=== PATIENT | male | born 1955 | race Caucasian/White ===

== ENCOUNTER 2024-08-05 10:28 | Day surgery (SDC) | payer MEDICARE, OTHER ==
[2024-08-05] VITALS (14 sets, daily range): BP systolic 125–160; BP diastolic 67–96; PULSE 75–88; RESP 14–16; TEMP 97.8; O2SAT 92–99
[~2024-08-05] VITALS: Ht 180.3 cm; Wt 152.0 kg
[~2024-08-05 10:28] MED LIST: ASPI81TA52 PO; HYDR-3972 PO
[2024-08-05] MEDS ORDERED: normal saline 1000ml 1,000 ML IV SCH (11:05)
[2024-08-05] MEDS ORDERED: FURO40TA4 PO (11:22)
[2024-08-05] MEDS ORDERED: AMLO5TAB16 PO (11:22)
[2024-08-05] MEDS ORDERED: LOSA100T58 PO (11:22)
[2024-08-05] MEDS ORDERED: ASPI-1265 PO (11:22)
[2024-08-05] MEDS ORDERED: METO25TA6 PO (11:22)
[2024-08-05] MEDS ORDERED: ZINC220T3 PO (11:22)
[2024-08-05] MEDS ORDERED: APIX5TAB3 PO (11:22)
[2024-08-05] MEDS ORDERED: vitamin c PO (11:22)
[2024-08-05] MEDS: MIDAZolam 1mg/ml 10ml vial IV ONE (12:45)
[2024-08-05] MEDS: fentaNYL/PF 50MCG/1 ML 2ML syringe IV ONE (12:45)
== END 2024-08-05 14:00 | disposition home or self-care (01) ==
LOC: SSTAY O 10:28
PROVIDERS: ATTEND Student in an Organized Health Care Education/Training Program
DX: I08.1 Rheumatic disorders of both mitral and tricuspid valves (principal); I48.91 Unspecified atrial fibrillation; I87.2 Venous insufficiency (chronic) (peripheral); I10 Essential (primary) hypertension; Z79.899 Other long term (current) drug therapy
CPT/HCPCS: 93312; 93325; J2250; J3010; J7030

== ENCOUNTER 2024-08-12 11:27 | Inpatient (IN) | payer MEDICARE, OTHER ==
[~2024-08-12] VITALS: Ht 180.3 cm; Wt 153.3 kg
[2024-08-12] VITALS (12 sets, daily range): BP systolic 117–177; BP diastolic 66–91; PULSE 60–88; RESP 15–32; TEMP 97.7–97.9; O2SAT 86–95
[~2024-08-12 11:27] MED LIST changes: +AMLO5TAB16 PO; +APIX5TAB3 PO; +ASPI-1265 PO; -ASPI81TA52 PO; +FURO40TA4 PO; -HYDR-3972 PO; +LOSA100T58 PO; +METO25TA6 PO; +ZINC220T3 PO; +vitamin c PO
[2024-08-12 12:33] LABS: BASOPHILS # (AUTO) 0.1 X10'3 (0-0.2); EOSINOPHILS # (AUTO) 0.2 X10'3 (0-0.9); LYMPHOCYTES # (AUTO) 0.7 X10'3 (1.1-4.8); MONOCYTES # (AUTO) 0.5 X10'3 (0-0.9)
[2024-08-12 12:35] LABS: BASOPHILS % (AUTO) 0.9 % (0-1); EOSINOPHILS % (AUTO) 2.5 % (0-6); HEMATOCRIT 37.3 % (42.0-52.0); HEMOGLOBIN 12.4 g/dl (14.0-17.9); LYMPHOCYTES % (AUTO) 8.9 % (21-51); MEAN CORPUSCULAR HEMOGLOBIN 33.6 PG (27.0-31.0); MEAN CORPUSCULAR HGB CONC 33.2 g/dL (33.0-36.5); MEAN CORPUSCULAR VOLUME 101.2 FL (78-98); MEAN PLATELET VOLUME 11.1 FL (7.4-10.4); MONOCYTES % (AUTO) 6.3 % (2-12); NEUTROPHILS # (AUTO) 6.7 X10'3 (1.8-7.7); NEUTROPHILS % (AUTO) 81.4 % (42-75); PLATELET COUNT 135 X10'3 (140-440); RED BLOOD COUNT 3.68 X10'6 (4.70-6.10); RED CELL DISTRIBUTION WIDTH 17.3 % (11.5-14.5); WHITE BLOOD COUNT 8.3 X10'3 (4.5-11.0)
[2024-08-12 12:47] LABS: ALBUMIN 3.8 G/DL (3.4-5.0); ANION GAP 5 (8-16); BLOOD UREA NITROGEN 17 MG/DL (7-18); BUN/CREATININE RATIO 15.5 (10.0-20.0); CHLORIDE 100 MMOL/L (99-107); GLUCOSE 108 MG/DL (70-104); POTASSIUM 3.6 MMOL/L (3.5-5.1); SODIUM 135 MMOL/L (135-145); TOTAL CARBON DIOXIDE 29.6 MMOL/L (24-32); eCRCL 69 ML/MIN; eGFR 67 ML/MIN
[2024-08-12 12:51] LABS: APTT 31 SECONDS (22-32); INR 1.2 INR; PROTHROMBIN TIME 12.3 SECONDS (9.0-12.0)
[2024-08-12 13:05] LABS: ANISOCYTOSIS 1+; LARGE PLATELETS FEW; PLATELET ESTIMATE DECREASED
[2024-08-12 13:06] LABS: POLYCHROMASIA FEW
[2024-08-12 13:07] LABS: ELLIPTOCYTES 1+
[2024-08-12] MEDS ORDERED: heparin 1,000unit/ml 10ml vial 10 ML ONE (13:15)
[2024-08-12] MEDS ORDERED: LIDOcaine 1% 30ml preserv. free vial ONE (13:15)
[2024-08-12] MEDS ORDERED: verapamil 2.5 mg/ml inj IV ONE (13:15)
[2024-08-12] MEDS ORDERED: midazolam 1 mg/ML 2ml injection ONE (13:15)
[2024-08-12] MEDS ORDERED: fentaNYL/PF 50MCG/1 ML 2ML syringe ONE (13:15)
[2024-08-12] MEDS ORDERED: iohexol 350MG/ML 100ml bottle IV ONE (13:15)
[2024-08-12] MEDS ORDERED: DABI150C PO (13:33)
[2024-08-12] MEDS: LORazepam 0.5 MG tablet PO PRN (13:45)
[2024-08-12] MEDS: normal saline 1,000 ML IV SCH (13:45)
[2024-08-12] MEDS: diphenhydrAMINE 25mg capsule PO PRN (13:45)
[2024-08-12] MEDS ORDERED: nitroGLYCERIN 500mcg/5mL D5W 5 ML IV ONE (14:01)
[2024-08-12] MEDS: metoprolol tartrate 25mg tablet PO SCH (23:42)
[2024-08-13] VITALS (9 sets, daily range): BP systolic 108–134; BP diastolic 58–89; PULSE 72–97; RESP 14–24; TEMP 97.1–98.2; O2SAT 85–96
[2024-08-13 06:48] LABS: ISTAT HGB MIX 11.2 g/dl (14.0-17.9); ISTAT Hct MIX 33 %PCV (42-52); ISTAT O2 SATURATION MIX VENOUS 50 % (60-80); ISTAT SOURCE BLNK
[2024-08-13 07:33] LABS: CHOL/HDL RATIO 4.3 (0.00-4.99); CHOLESTEROL 151 MG/DL (0-200); CREATININE 1.05 MG/DL (0.60-1.10); HDL CHOLESTEROL 35 MG/DL (35-60); LDL CHOLESTEROL 99 MG/DL (50-100); TRIGLYCERIDES 87 MG/DL (20-135); eCRCL 73 ML/MIN; eGFR 70 ML/MIN
[2024-08-13] MEDS: zinc sulfate 220mg capsule PO SCH (07:37)
[2024-08-13] MEDS: losartan 50mg tablet PO SCH (07:38)
[2024-08-13] MEDS: amLODIPine 5mg tablet PO SCH (07:38)
[2024-08-13] MEDS ORDERED: potassium Cl 40MEQ/1/2NS 520ml 520 ML IV PRN (09:35)
[2024-08-13] MEDS ORDERED: magnesium sulf-water 2g/50mL 50 ML IV PRN (09:35)
[2024-08-13] MEDS ORDERED: magnesium sulf-water 4G/100mL 100 ML IV PRN (09:35)
[2024-08-13] MEDS ORDERED: potassium Cl 20mEq/100mL bag 100 ML IV PRN (09:35)
[2024-08-13] MEDS ORDERED: potassium Cl 20 mEq SR tablet PO PRN (09:35)
[2024-08-13] MEDS ORDERED: potassium CL 10mEq/100ml bag 100 ML IV PRN (09:35)
[2024-08-13] MEDS ORDERED: potassium Cl 40MEQ/270ML bag 250 ML IV PRN (09:35)
[2024-08-13] MEDS: MESSAGE TO NURSING PO ONE ×5 (10:29→10:30)
[2024-08-13 14:47] LABS: ISTAT HGB MIX 11.6 g/dl (14.0-17.9); ISTAT Hct MIX 34 %PCV (42-52); ISTAT O2 SATURATION MIX VENOUS 81 % (60-80); ISTAT SOURCE BLNK
[2024-08-13] MEDS: furosemide 40mg/4ml inj IV STA (19:23)
[2024-08-13] MEDS ORDERED: mupirocin 2% nasal ointment 1gm UD NS SCH (20:00)
[2024-08-14] VITALS (20 sets, daily range): BP systolic 95–150; BP diastolic 62–84; PULSE 71–91; RESP 15–24; TEMP 97.3–97.9; O2SAT 88–95
[2024-08-14] MEDS: acetaminophen 325mg tablet PO PRN (00:55)
[2024-08-14] MEDS: DOCUMENT DATE & TIME OF BETA-BLOCKER PO ONE (05:30)
[2024-08-14] MEDS: famotidine 20mg tablet PO ONE (05:30)
[2024-08-14] MEDS ORDERED: ringers solution, lacted 1,000 ML IV SCH (05:30)
[2024-08-14 07:29] LABS: ALBUMIN 3.5 G/DL (3.4-5.0); ANION GAP 9 (8-16); BLOOD UREA NITROGEN 13 MG/DL (7-18); BUN/CREATININE RATIO 12.7 (10.0-20.0); CALCIUM 8.8 MG/DL (8.5-10.1); CHLORIDE 102 MMOL/L (99-107); CREATININE 1.02 MG/DL (0.60-1.10); GLUCOSE 120 MG/DL (70-104); SODIUM 139 MMOL/L (135-145); TOTAL CARBON DIOXIDE 28.2 MMOL/L (24-32); eCRCL 75 ML/MIN; eGFR 73 ML/MIN
[2024-08-14] MEDS: furosemide 40mg tablet PO SCH (08:08)
[2024-08-14 09:56] LABS: ABG BASE EXCESS 0.1 mmol/L (-2.0-3.0); ABG HCO3 29.5 mmol/L (21.0-28.0); ABG OXYGEN SATURATION 93.9 % (94.0-98.0); ABG PCO2 (T) 72.3 mmHg (35.0-48.0); ABG PH (T) 7.225 (7.350-7.450); ABG PO2 (T) 76.7 mmHg (83.0-108.0); ALLEN'S TEST POSITIVE; FCOHb 1.1 % (0.5-1.5); FLOW 7 L/min; FMetHb 0.1 % (0.0-1.5); FO2Hb 92.8 % (94.0-98.0); MODE HIGH FLOW; PATIENT TEMPERATURE 36.3; TOTAL HEMOGLOBIN 12.3 G/dl (13.5-17.5)
[2024-08-14] MEDS: furosemide 40mg/4ml inj IV ONE (11:38)
[2024-08-14] MEDS: albuterol 2.5 MG/3 ML nebule NEB ONE (15:51)
[2024-08-14] MEDS ORDERED: cefazolin 2gm/D5W 100mL 100 ML IV ONE (18:50)
[2024-08-14] MEDS ORDERED: potassium CL 10mEq/100ml bag 100 ML IV PRN (18:50)
[2024-08-14] MEDS ORDERED: dextrose 50%-water 50ml dispensing syringe IV PRN (18:50)
[2024-08-14] MEDS ORDERED: magnesium sulf-water 2g/50mL 50 ML IV PRN (18:50)
[2024-08-14] MEDS ORDERED: potassium Cl 20mEq/100mL bag 100 ML IV PRN (18:50)
[2024-08-14] MEDS ORDERED: insulin glargine (Lantus) pen - multi-dose SQ PRN (18:50)
[2024-08-14] MEDS ORDERED: potassium Cl 40MEQ/270ML bag 250 ML IV PRN (18:50)
[2024-08-14] MEDS ORDERED: VANCOMYCIN 1GM 200ML H20 (PEG) 200 ML IV ONE (18:50)
[2024-08-14] MEDS ORDERED: potassium Cl 40MEQ/1/2NS 520ml 520 ML IV PRN (18:50)
[2024-08-14] MEDS ORDERED: magnesium sulf-water 4G/100mL 100 ML IV PRN (18:50)
[2024-08-14] MEDS ORDERED: potassium Cl 20 mEq SR tablet PO PRN (18:50)
[2024-08-15] VITALS (23 sets, daily range): BP systolic 81–157; BP diastolic 42–91; PULSE 64–108; RESP 13–18; TEMP 97.4–97.9; O2SAT 90–99
[2024-08-15] MEDS: mupirocin 2% nasal ointment 1gm UD NS ONE ×2 (05:30→06:33)
[2024-08-15] MEDS: DOCUMENT DATE & TIME OF BETA-BLOCKER PO ONE (05:30)
[2024-08-15] MEDS: Insulin Reg/NS 100units/100mL 100 ML IV SCH ×2 (05:30→13:25)
[2024-08-15] MEDS: ceFAZolin 3,000 MG in NS 100ml IVPB x1 dose post-op IV ONE (05:30)
[2024-08-15] MEDS ORDERED: BUPIVAcaine 0.5% inj/PF 0 ML ONE (06:23)
[2024-08-15] MEDS ORDERED: epiNEPHrine 1 mg/ml inj ONE (06:23)
[2024-08-15] MEDS ORDERED: vancomycin 1,000mg inj ONE (06:23)
[2024-08-15] MEDS ORDERED: ceFAZolin 1000mg inj ONE (06:23)
[2024-08-15 06:32] LABS: BASOPHILS # (AUTO) 0.1 X10'3 (0-0.2); BASOPHILS % (AUTO) 0.9 % (0-1); EOSINOPHILS # (AUTO) 0.3 X10'3 (0-0.9); EOSINOPHILS % (AUTO) 3.2 % (0-6); HEMATOCRIT 33.6 % (42.0-52.0); HEMOGLOBIN 11.2 g/dl (14.0-17.9); LYMPHOCYTES # (AUTO) 0.8 X10'3 (1.1-4.8); LYMPHOCYTES % (AUTO) 9.5 % (21-51); MEAN CORPUSCULAR HEMOGLOBIN 33.8 PG (27.0-31.0); MEAN CORPUSCULAR HGB CONC 33.2 g/dL (33.0-36.5); MEAN CORPUSCULAR VOLUME 101.7 FL (78-98); MEAN PLATELET VOLUME 10.2 FL (7.4-10.4); MONOCYTES # (AUTO) 0.6 X10'3 (0-0.9); MONOCYTES % (AUTO) 7.4 % (2-12); NEUTROPHILS # (AUTO) 6.3 X10'3 (1.8-7.7); PLATELET COUNT 122 X10'3 (140-440); RED BLOOD COUNT 3.31 X10'6 (4.70-6.10); RED CELL DISTRIBUTION WIDTH 17.7 % (11.5-14.5)
[2024-08-15 06:39] LABS: INR 1.2 INR; PROTHROMBIN TIME 12.6 SECONDS (9.0-12.0)
[2024-08-15 06:44] LABS: ALBUMIN 3.5 G/DL (3.4-5.0); ANION GAP 4 (8-16); BLOOD UREA NITROGEN 18 MG/DL (7-18); BUN/CREATININE RATIO 16.1 (10.0-20.0); CHLORIDE 102 MMOL/L (99-107); CREATININE 1.12 MG/DL (0.60-1.10); GLUCOSE 108 MG/DL (70-104); POTASSIUM 3.8 MMOL/L (3.5-5.1); SODIUM 140 MMOL/L (135-145); TOTAL CARBON DIOXIDE 34.3 MMOL/L (24-32); eCRCL 68 ML/MIN; eGFR 65 ML/MIN
[2024-08-15] MEDS: ceFAZolin 1000mg inj IR ONE (07:15)
[2024-08-15] MEDS: famotidine 20mg tablet PO ONE (07:25)
[2024-08-15] MEDS: VANCOMYCIN/WATER FOR INJ (PEG) 1.5GM/300 ML IVPB IV ONE (07:25)
[2024-08-15] MEDS: ringers solution, lacted 1,000 ML IV SCH (07:26)
[2024-08-15] MEDS ORDERED: sevoflurane 250ml liquid IH ONE (08:07)
[2024-08-15] MEDS ORDERED: propofol inj 20 ML IV ONE (08:08)
[2024-08-15] MEDS ORDERED: MIDAZolam 1mg/ml 10ml vial ONE (08:09)
[2024-08-15] MEDS ORDERED: SUfentanil 50mcg/ml 1ml amp IV ONE (08:13)
[2024-08-15 08:30] LABS: ABG BASE EXCESS 0.2 mmol/L (-2.0-3.0); ABG HCO3 29.1 mmol/L (21.0-28.0); ABG OXYGEN SATURATION 99.1 % (94.0-98.0); ABG PH 7.244 (7.350-7.450); ABG PO2 248.7 mmHg (83.0-108.0); CL (ABG) 97 mmol/L (98-107); FCOHb 0.3 % (0.5-1.5); FHHb 0.9 % (0.0-5.0); FMetHb 0.3 % (0.0-1.5); FO2Hb 98.5 % (94.0-98.0); GLUCOSE (ABG) 109 mg/dl (65-95); K (ABG) 4.1 mmol/L (3.40-4.50); TOTAL HEMOGLOBIN 12.5 G/dl (13.5-17.5)
[2024-08-15 10:22] LABS: ABG BASE EXCESS 3.6 mmol/L (-2.0-3.0); ABG HCO3 27.5 mmol/L (21.0-28.0); ABG OXYGEN SATURATION 99.6 % (94.0-98.0); ABG PCO2 38.6 mmHg (35.0-48.0); CL (ABG) 97 mmol/L (98-107); FCOHb 0.3 % (0.5-1.5); FHHb 0.4 % (0.0-5.0); FO2Hb 99.3 % (94.0-98.0); GLUCOSE (ABG) 105 mg/dl (65-95); IONIZED CA (ABG) 1.06 mmol/L (1.15-1.33); K (ABG) 3.9 mmol/L (3.40-4.50); TOTAL HEMOGLOBIN 8.7 G/dl (13.5-17.5)
[2024-08-15 10:39] LABS: ABG PCO2 68.8 mmHg (35.0-48.0)
[2024-08-15 10:40] LABS: ABG PO2 350.3 mmHg (83.0-108.0)
[2024-08-15 11:05] LABS: ABG BASE EXCESS 3.6 mmol/L (-2.0-3.0); ABG OXYGEN SATURATION 99.7 % (94.0-98.0); ABG PCO2 35.8 mmHg (35.0-48.0); ABG PH 7.495 (7.350-7.450); ABG PO2 363.2 mmHg (83.0-108.0); CL (ABG) 98 mmol/L (98-107); FCOHb 0.8 % (0.5-1.5); FHHb 0.3 % (0.0-5.0); FMetHb 0.3 % (0.0-1.5); FO2Hb 98.6 % (94.0-98.0); GLUCOSE (ABG) 126 mg/dl (65-95); K (ABG) 4.7 mmol/L (3.40-4.50); TOTAL HEMOGLOBIN 8.5 G/dl (13.5-17.5)
[2024-08-15 11:33] LABS: ABG BASE EXCESS 5.3 mmol/L (-2.0-3.0); ABG HCO3 29.2 mmol/L (21.0-28.0); ABG OXYGEN SATURATION 99.8 % (94.0-98.0); ABG PCO2 39.9 mmHg (35.0-48.0); ABG PH 7.482 (7.350-7.450); ABG PO2 335.1 mmHg (83.0-108.0); CL (ABG) 98 mmol/L (98-107); FCOHb 1.1 % (0.5-1.5); FHHb 0.2 % (0.0-5.0); FMetHb 0.1 % (0.0-1.5); FO2Hb 98.6 % (94.0-98.0); GLUCOSE (ABG) 159 mg/dl (65-95); K (ABG) 4.7 mmol/L (3.40-4.50); TOTAL HEMOGLOBIN 8.6 G/dl (13.5-17.5)
[2024-08-15 12:25] LABS: ABG HCO3 VENOUS 28.6 mmol/L (22.0-29.0); ABG OXYGEN SATURATION VENOUS 56.8 % (60.0-85.0); ABG PCO2 VENOUS 49.2 mmHg (38.0-54.0); ABG PH (VENOUS) 7.382 (7.320-7.430); ABG PO2 VENOUS 30.6 mmHg (23.0-48.0); CL (ABG) 99 mmol/L (98-107); FCOHb VENOUS 1.4 % (0.5-1.5); FHHb VENOUS 42.5 %; FMetHb VENOUS 0.3 % (0.5-1.5); FO2Hb VENOUS 55.8 % (0-80.0); GLUCOSE (ABG) 164 mg/dl (65-95); IONIZED CA (ABG) 1.21 mmol/L (1.15-1.33); K (ABG) 4.6 mmol/L (3.40-4.50)
[2024-08-15 12:29] LABS: ACTIVATED CLOTTING TIME 156 SEC (101-148)
[2024-08-15] MEDS: albumin (Human) 5% 250ml 250 ML IV PRN (13:15)
[2024-08-15] MEDS ORDERED: potassium Cl 40MEQ/1/2NS 520ml 520 ML IV PRN (13:25)
[2024-08-15] MEDS ORDERED: potassium CL 10mEq/100ml bag 100 ML IV PRN (13:25)
[2024-08-15] MEDS ORDERED: acetaminophen 325mg tablet PO PRN (13:25)
[2024-08-15] MEDS: DOBUTamine-DoBUTrex 500mg/D5W 250 ML IV SCH (13:25)
[2024-08-15] MEDS ORDERED: sodium phosphate inj. 15 MMOL in dextrose 5%-water 250 ML IV PRN (13:25)
[2024-08-15] MEDS ORDERED: ondansetron/PF 4mg/2ml inj IV PRN (13:25)
[2024-08-15] MEDS ORDERED: Neutra Phos packet PO PRN (13:25)
[2024-08-15] MEDS ORDERED: nitroGLYCERIN-Tridil 50MG/D5W 250 ML IV PRN (13:25)
[2024-08-15] MEDS ORDERED: bisacodyl 10mg suppository rectal RC PRN (13:25)
[2024-08-15] MEDS ORDERED: mineral oil 133ml enema RC PRN (13:25)
[2024-08-15] MEDS ORDERED: potassium Cl 40MEQ/270ML bag 250 ML IV PRN (13:25)
[2024-08-15] MEDS ORDERED: magnesium hydroxide 30ml (MOM) UD suspension PO PRN (13:25)
[2024-08-15] MEDS ORDERED: morphine 2 MG/ML inj. syringe IV PRN (13:25)
[2024-08-15] MEDS ORDERED: dextrose 50%-water 50ml dispensing syringe IV PRN (13:25)
[2024-08-15] MEDS ORDERED: niCARDipine-NS 40mg/200ml IVPB 200 ML IV PRN (13:25)
[2024-08-15] MEDS ORDERED: sodium phosphate inj. 30 MMOL in dextrose 5%-water 250 ML IV PRN (13:25)
[2024-08-15] MEDS ORDERED: insulin glargine (Lantus) pen - multi-dose SQ PRN (13:25)
[2024-08-15] MEDS ORDERED: metoclopramide 5 mg/ml inj IV PRN (13:25)
[2024-08-15] MEDS: albumin (Human) 5% 250ml 250 ML IV ONE (13:28)
[2024-08-15] MEDS: albumin (Human) 5% 250ml 500 ML IV ONE (13:42)
[2024-08-15 13:44] LABS: ABG BASE EXCESS 0.1 mmol/L (-2.0-3.0); ABG HCO3 23.8 mmol/L (21.0-28.0); ABG PCO2 (T) 34.2 mmHg (35.0-48.0); ABG PH (T) 7.458 (7.350-7.450); ABG PO2 (T) 57.9 mmHg (83.0-108.0); FCOHb 1.2 % (0.5-1.5); FHHb 8.9 % (0.0-5.0); FMetHb 0.3 % (0.0-1.5); FO2Hb 89.6 % (94.0-98.0); MODE VENT - SIMV; PATIENT TEMPERATURE 36.3; PEEP 8 cm H2O; RESPIRATORY RATE 14 b/min; TIDAL VOLUME 800 mL; TOTAL HEMOGLOBIN 10.2 G/dl (13.5-17.5)
[2024-08-15] MEDS: calcium chloride 100 MG/1 ML inj IV ONE (14:00)
[2024-08-15] MEDS: sodium chloride 0.45% 1,000 ML IV SCH (14:00)
[2024-08-15 14:06] LABS: BASOPHILS # (AUTO) 0.1 X10'3 (0-0.2); BASOPHILS % (AUTO) 0.6 % (0-1); EOSINOPHILS # (AUTO) 0.1 X10'3 (0-0.9); EOSINOPHILS % (AUTO) 1.1 % (0-6); HEMATOCRIT 28.8 % (42.0-52.0); HEMOGLOBIN 9.5 g/dl (14.0-17.9); LYMPHOCYTES # (AUTO) 0.4 X10'3 (1.1-4.8); LYMPHOCYTES % (AUTO) 3.1 % (21-51); MEAN CORPUSCULAR HEMOGLOBIN 33.5 PG (27.0-31.0); MEAN CORPUSCULAR HGB CONC 33.2 g/dL (33.0-36.5); MEAN CORPUSCULAR VOLUME 101.1 FL (78-98); MEAN PLATELET VOLUME 10.7 FL (7.4-10.4); MONOCYTES # (AUTO) 0.7 X10'3 (0-0.9); MONOCYTES % (AUTO) 5.1 % (2-12); NEUTROPHILS # (AUTO) 11.9 X10'3 (1.8-7.7); NEUTROPHILS % (AUTO) 90.1 % (42-75); PLATELET COUNT 107 X10'3 (140-440); RED BLOOD COUNT 2.85 X10'6 (4.70-6.10); WHITE BLOOD COUNT 13.2 X10'3 (4.5-11.0)
[2024-08-15 14:13] LABS: APTT 34 SECONDS (22-32); INR 1.5 INR; PROTHROMBIN TIME 15.1 SECONDS (9.0-12.0)
[2024-08-15 14:16] LABS: ALANINE AMINOTRANSFERASE 24 U/L (12-78); ALBUMIN 2.7 G/DL (3.4-5.0); ALBUMIN/GLOBULIN RATIO 1.4 (1.1-1.5); ALKALINE PHOSPHATASE 47 IU/L (46-116); ANION GAP 5 (8-16); ASPARTATE AMINO TRANSFERASE 34 U/L (10-37); BILIRUBIN,TOTAL 2.4 MG/DL (0.1-1.0); BLOOD UREA NITROGEN 18 MG/DL (7-18); BUN/CREATININE RATIO 17.6 (10.0-20.0); CALCIUM 8.2 MG/DL (8.5-10.1); CHLORIDE 106 MMOL/L (99-107); CREATININE 1.02 MG/DL (0.60-1.10); GLUCOSE 140 MG/DL (70-104); MAGNESIUM 1.9 MG/DL (1.5-2.4); PHOSPHORUS 1.7 MG/DL (2.3-4.5); SODIUM 141 MMOL/L (135-145); TOTAL CARBON DIOXIDE 30.3 MMOL/L (24-32); TOTAL PROTEIN 4.6 G/DL (6.4-8.2); eCRCL 75 ML/MIN; eGFR 73 ML/MIN
[2024-08-15 14:24] LABS: LARGE PLATELETS FEW; PLATELET ESTIMATE DECREASED; POLYCHROMASIA 1+
[2024-08-15 14:25] LABS: ANISOCYTOSIS 1+
[2024-08-15] MEDS: morphine 4 MG/ML inj SYRINge IV PRN (14:29)
[2024-08-15] MEDS ORDERED: rocuronium 10mg/ml inj IV ONE ×3 (14:55→14:56)
[2024-08-15] MEDS ORDERED: albumin (Human) 5% 250ml 250 ML IV ONE (14:56)
[2024-08-15] MEDS: ketorolac trometh 15mg/ml vial 15 MG/ML ML IV SCH (15:05)
[2024-08-15] MEDS ORDERED: NORepinephrine 8mg/ 250ml NS 250 ML IV PRN (15:25)
[2024-08-15 16:28] LABS: HEMOGLOBIN 9.4 g/dl (14.0-17.9); MEAN CORPUSCULAR HEMOGLOBIN 32.9 PG (27.0-31.0); MEAN CORPUSCULAR HGB CONC 32.3 g/dL (33.0-36.5); MEAN CORPUSCULAR VOLUME 101.7 FL (78-98); MEAN PLATELET VOLUME 10.8 FL (7.4-10.4); PLATELET COUNT 109 X10'3 (140-440); RED BLOOD COUNT 2.85 X10'6 (4.70-6.10); RED CELL DISTRIBUTION WIDTH 17.1 % (11.5-14.5); WHITE BLOOD COUNT 12.5 X10'3 (4.5-11.0)
[2024-08-15 16:55] LABS: FIBRINOGEN 241 MG/DL (177-424)
[2024-08-15] MEDS: potassium Cl 20mEq/100mL bag 100 ML IV PRN (17:00)
[2024-08-15] MEDS ORDERED: sodium phosphate inj. 30 MMOL in normal saline 250ml IV soln 250 ML IV PRN (17:03)
[2024-08-15] MEDS: ceFAZolin 2gm in dextrose, iso 50 ML IV SCH (17:04)
[2024-08-15] MEDS: dexmedetomidin/NS 400mcg/100ml 100 ML IV PRN (17:06)
[2024-08-15] MEDS: magnesium sulf-water 4G/100mL 100 ML IV PRN (17:07)
[2024-08-15] MEDS: milrinone (Primacor) 20mg/D5W 100 ML IV SCH (17:11)
[2024-08-15] MEDS: sodium phosphate inj. 15 MMOL in normal saline 250ml IV soln 250 ML IV PRN (18:32)
[2024-08-15] MEDS ORDERED: VANCOMYCIN 1GM 200ML H20 (PEG) 200 ML IV SCH (20:00)
[2024-08-15] MEDS: atorvastatin 10mg tablet PO SCH (20:05)
[2024-08-15] MEDS: mupirocin 2% nasal ointment 1gm UD NS SCH (20:05)
[2024-08-15] MEDS: sennosides/docusate sodium tablet PO SCH (20:05)
[2024-08-15] MEDS: vancomycin/NS 1 GM ADD-VANTAGE 250 ML IV SCH (20:05)
[2024-08-15 20:26] LABS: BASOPHILS % (AUTO) 0 % (0-1); EOSINOPHILS % (AUTO) 0 % (0-6); HEMATOCRIT 27.2 % (42.0-52.0); HEMOGLOBIN 9.1 g/dl (14.0-17.9); LYMPHOCYTES # (AUTO) 0.2 X10'3 (1.1-4.8); LYMPHOCYTES % (AUTO) 1.9 % (21-51); MEAN CORPUSCULAR HEMOGLOBIN 33.8 PG (27.0-31.0); MEAN CORPUSCULAR HGB CONC 33.5 g/dL (33.0-36.5); MEAN CORPUSCULAR VOLUME 100.9 FL (78-98); MEAN PLATELET VOLUME 9.9 FL (7.4-10.4); MONOCYTES # (AUTO) 0.3 X10'3 (0-0.9); MONOCYTES % (AUTO) 2.6 % (2-12); NEUTROPHILS % (AUTO) 95.5 % (42-75); PLATELET COUNT 109 X10'3 (140-440); RED CELL DISTRIBUTION WIDTH 17.4 % (11.5-14.5); WHITE BLOOD COUNT 10.5 X10'3 (4.5-11.0)
[2024-08-15 20:39] LABS: ALBUMIN 3.6 G/DL (3.4-5.0); ANION GAP 9 (8-16); BLOOD UREA NITROGEN 21 MG/DL (7-18); BUN/CREATININE RATIO 17.5 (10.0-20.0); CALCIUM 9.1 MG/DL (8.5-10.1); CHLORIDE 103 MMOL/L (99-107); GLUCOSE 217 MG/DL (70-104); MAGNESIUM 2.5 MG/DL (1.5-2.4); SODIUM 140 MMOL/L (135-145); TOTAL CARBON DIOXIDE 28.1 MMOL/L (24-32); eCRCL 64 ML/MIN; eGFR 60 ML/MIN
[2024-08-15 20:44] LABS: PHOSPHORUS 1.9 MG/DL (2.3-4.5)
[2024-08-15] MEDS: potassium Cl 40MEQ/270ML bag 270 ML IV PRN (21:30)
[2024-08-16] VITALS (34 sets, daily range): BP systolic 88–147; BP diastolic 40–73; PULSE 80–113; RESP 13–24; O2SAT 92–98
[2024-08-16 03:22] LABS: BASOPHILS % (AUTO) 0.1 % (0-1); EOSINOPHILS % (AUTO) 0 % (0-6); HEMATOCRIT 25.1 % (42.0-52.0); HEMOGLOBIN 8.5 g/dl (14.0-17.9); LYMPHOCYTES # (AUTO) 0.2 X10'3 (1.1-4.8); LYMPHOCYTES % (AUTO) 2.2 % (21-51); MEAN CORPUSCULAR HEMOGLOBIN 33.9 PG (27.0-31.0); MEAN CORPUSCULAR VOLUME 99.7 FL (78-98); MEAN PLATELET VOLUME 9.7 FL (7.4-10.4); MONOCYTES # (AUTO) 0.5 X10'3 (0-0.9); MONOCYTES % (AUTO) 4.8 % (2-12); NEUTROPHILS # (AUTO) 9.2 X10'3 (1.8-7.7); NEUTROPHILS % (AUTO) 92.9 % (42-75); PLATELET COUNT 94 X10'3 (140-440); RED BLOOD COUNT 2.52 X10'6 (4.70-6.10); WHITE BLOOD COUNT 9.9 X10'3 (4.5-11.0)
[2024-08-16 03:26] LABS: ABG BASE EXCESS -0.3 mmol/L (-2.0-3.0); ABG HCO3 22.9 mmol/L (21.0-28.0); ABG OXYGEN SATURATION 97.7 % (94.0-98.0); ABG PCO2 (T) 31.8 mmHg (35.0-48.0); ABG PH (T) 7.476 (7.350-7.450); ABG PO2 (T) 101.9 mmHg (83.0-108.0); FCOHb 0.7 % (0.5-1.5); FHHb 2.3 % (0.0-5.0); FMetHb 0.3 % (0.0-1.5); FO2Hb 96.7 % (94.0-98.0); MODE SIMV; PATIENT TEMPERATURE 37.2; PEEP 8 cm H2O; RESPIRATORY RATE 8 b/min; TIDAL VOLUME 800 mL; TOTAL HEMOGLOBIN 8.9 G/dl (13.5-17.5)
[2024-08-16 03:31] LABS: ALANINE AMINOTRANSFERASE 20 U/L (12-78); ALBUMIN 3.2 G/DL (3.4-5.0); ALBUMIN/GLOBULIN RATIO 1.5 (1.1-1.5); ALKALINE PHOSPHATASE 48 IU/L (46-116); ANION GAP 6 (8-16); ASPARTATE AMINO TRANSFERASE 51 U/L (10-37); BILIRUBIN,TOTAL 2.3 MG/DL (0.1-1.0); BLOOD UREA NITROGEN 22 MG/DL (7-18); BUN/CREATININE RATIO 18.5 (10.0-20.0); CALCIUM 8.7 MG/DL (8.5-10.1); CHLORIDE 106 MMOL/L (99-107); CREATININE 1.19 MG/DL (0.60-1.10); GLUCOSE 119 MG/DL (70-104); MAGNESIUM 2.3 MG/DL (1.5-2.4); PHOSPHORUS 1.5 MG/DL (2.3-4.5); SODIUM 141 MMOL/L (135-145); TOTAL PROTEIN 5.4 G/DL (6.4-8.2); eCRCL 64 ML/MIN; eGFR 61 ML/MIN
[2024-08-16] MEDS: metoprolol tartrate 12.5mg (1/2 tablet) PO SCH (08:28)
[2024-08-16] MEDS: aspirin 81mg tab.chew PO SCH (08:28)
[2024-08-16 10:09] LABS: ABG BASE EXCESS 4.3 mmol/L (-2.0-3.0); ABG HCO3 28.1 mmol/L (21.0-28.0); ABG OXYGEN SATURATION 96.9 % (94.0-98.0); ABG PCO2 (T) 38.8 mmHg (35.0-48.0); ABG PH (T) 7.478 (7.350-7.450); ABG PO2 (T) 89.1 mmHg (83.0-108.0); FCOHb 0.7 % (0.5-1.5); FHHb 3.1 % (0.0-5.0); FMetHb 0.3 % (0.0-1.5); FO2Hb 95.9 % (94.0-98.0); MODE SPONT; PEEP 8 cm H2O; TOTAL HEMOGLOBIN 8.7 G/dl (13.5-17.5)
[2024-08-16 11:49] LABS: HEMATOCRIT 24.9 % (42.0-52.0); HEMOGLOBIN 8.1 g/dl (14.0-17.9); MEAN CORPUSCULAR HEMOGLOBIN 32.7 PG (27.0-31.0); MEAN CORPUSCULAR HGB CONC 32.5 g/dL (33.0-36.5); MEAN CORPUSCULAR VOLUME 100.4 FL (78-98); MEAN PLATELET VOLUME 9.8 FL (7.4-10.4); PLATELET COUNT 99 X10'3 (140-440); RED BLOOD COUNT 2.48 X10'6 (4.70-6.10); RED CELL DISTRIBUTION WIDTH 17.5 % (11.5-14.5); WHITE BLOOD COUNT 13.6 X10'3 (4.5-11.0)
[2024-08-16] MEDS ORDERED: dextrose 50%-water 50ml dispensing syringe IV PRN ×2 (11:55)
[2024-08-16] MEDS: INSULIN LISPRO 100 UNIT/ML INSULN.PEN MULTI-DOSE SQ SCH (12:00)
[2024-08-16 12:05] LABS: MAGNESIUM 2.4 MG/DL (1.5-2.4); PHOSPHORUS 3.7 MG/DL (2.3-4.5); POTASSIUM 4.5 MMOL/L (3.5-5.1)
[2024-08-16] MEDS: HYDROcodone/acetaminophen 10/325mg tab PO PRN ×2 (16:46→21:34)
[2024-08-16] MEDS: magnesium sulf-water 2g/50mL 50 ML IV PRN (17:15)
[2024-08-17] VITALS (28 sets, daily range): BP systolic 109–159; BP diastolic 56–98; PULSE 82–112; RESP 13–31; O2SAT 91–97
[2024-08-17 03:38] LABS: BASOPHILS % (AUTO) 0 % (0-1); EOSINOPHILS % (AUTO) 0 % (0-6); HEMATOCRIT 23.6 % (42.0-52.0); HEMOGLOBIN 7.6 g/dl (14.0-17.9); LYMPHOCYTES # (AUTO) 0.2 X10'3 (1.1-4.8); LYMPHOCYTES % (AUTO) 1.6 % (21-51); MEAN CORPUSCULAR HEMOGLOBIN 33.1 PG (27.0-31.0); MEAN CORPUSCULAR HGB CONC 32.3 g/dL (33.0-36.5); MEAN CORPUSCULAR VOLUME 102.5 FL (78-98); MONOCYTES % (AUTO) 6.7 % (2-12); NEUTROPHILS # (AUTO) 14.1 X10'3 (1.8-7.7); NEUTROPHILS % (AUTO) 91.7 % (42-75); PLATELET COUNT 87 X10'3 (140-440); RED CELL DISTRIBUTION WIDTH 18.5 % (11.5-14.5); WHITE BLOOD COUNT 15.4 X10'3 (4.5-11.0)
[2024-08-17 03:52] LABS: ALBUMIN 3.1 G/DL (3.4-5.0); ANION GAP 5 (8-16); BLOOD UREA NITROGEN 28 MG/DL (7-18); BUN/CREATININE RATIO 27.7 (10.0-20.0); CALCIUM 8.5 MG/DL (8.5-10.1); CHLORIDE 106 MMOL/L (99-107); CREATININE 1.01 MG/DL (0.60-1.10); GLUCOSE 145 MG/DL (70-104); MAGNESIUM 2.4 MG/DL (1.5-2.4); PHOSPHORUS 4.9 MG/DL (2.3-4.5); POTASSIUM 4.6 MMOL/L (3.5-5.1); SODIUM 141 MMOL/L (135-145); TOTAL CARBON DIOXIDE 30.5 MMOL/L (24-32); eCRCL 76 ML/MIN; eGFR 74 ML/MIN
[2024-08-17] MEDS: pantoprazole 40mg Tablet.DR PO SCH (07:51)
[2024-08-17] MEDS: acetaminophen 325mg tablet PO PRN (07:56)
[2024-08-18] VITALS (26 sets, daily range): BP systolic 113–155; BP diastolic 62–81; PULSE 63–87; RESP 13–21; TEMP 97.2–97.4; O2SAT 91–98
[2024-08-18 03:37] LABS: BASOPHILS % (AUTO) 0.1 % (0-1); EOSINOPHILS % (AUTO) 0 % (0-6); HEMATOCRIT 22.5 % (42.0-52.0); LYMPHOCYTES # (AUTO) 0.4 X10'3 (1.1-4.8); MEAN CORPUSCULAR HEMOGLOBIN 32.4 PG (27.0-31.0); MEAN CORPUSCULAR HGB CONC 31.3 g/dL (33.0-36.5); MEAN CORPUSCULAR VOLUME 103.6 FL (78-98); MEAN PLATELET VOLUME 10.4 FL (7.4-10.4); MONOCYTES # (AUTO) 1.1 X10'3 (0-0.9); MONOCYTES % (AUTO) 8.8 % (2-12); NEUTROPHILS # (AUTO) 11.5 X10'3 (1.8-7.7); NEUTROPHILS % (AUTO) 88.1 % (42-75); PLATELET COUNT 76 X10'3 (140-440); RED BLOOD COUNT 2.17 X10'6 (4.70-6.10); RED CELL DISTRIBUTION WIDTH 18.9 % (11.5-14.5)
[2024-08-18 03:51] LABS: ALBUMIN 2.8 G/DL (3.4-5.0); ANION GAP 1 (8-16); BLOOD UREA NITROGEN 27 MG/DL (7-18); BUN/CREATININE RATIO 34.6 (10.0-20.0); CALCIUM 8.2 MG/DL (8.5-10.1); CHLORIDE 105 MMOL/L (99-107); CREATININE 0.78 MG/DL (0.60-1.10); GLUCOSE 116 MG/DL (70-104); MAGNESIUM 2.1 MG/DL (1.5-2.4); PHOSPHORUS 3.9 MG/DL (2.3-4.5); POTASSIUM 4.4 MMOL/L (3.5-5.1); SODIUM 139 MMOL/L (135-145); TOTAL CARBON DIOXIDE 32.8 MMOL/L (24-32); eCRCL 98 ML/MIN; eGFR > 90 ML/MIN
[2024-08-18] MEDS: potassium Cl 20 mEq SR tablet PO PRN (03:59)
[2024-08-18 04:06] LABS: PLATELET ESTIMATE DECREASED
[2024-08-18 04:07] LABS: ANISOCYTOSIS 2+
[2024-08-18] MEDS: furosemide 40mg/4ml inj IV ONE ×2 (08:10→11:24)
[2024-08-18] MEDS ORDERED: potassium CL 10mEq/100ml bag 100 ML IV PRN (10:50)
[2024-08-18] MEDS ORDERED: potassium Cl 40MEQ/1/2NS 520ml 520 ML IV PRN (10:50)
[2024-08-18] MEDS ORDERED: magnesium sulf-water 2g/50mL 50 ML IV PRN (10:50)
[2024-08-18] MEDS ORDERED: potassium Cl 20 mEq SR tablet PO PRN (10:50)
[2024-08-18] MEDS ORDERED: potassium Cl 20mEq/100mL bag 100 ML IV PRN (10:50)
[2024-08-18] MEDS ORDERED: magnesium sulf-water 4G/100mL 100 ML IV PRN (10:50)
[2024-08-18] MEDS ORDERED: potassium Cl 40MEQ/270ML bag 250 ML IV PRN (10:50)
[2024-08-18] MEDS: JUVEN Smoothie Arginine/Glut./Ca2+Bmb (Juven 19.3pkt) 240ml cup PO SCH (17:30)
[2024-08-18] MEDS: magnesium Cl slow-release 64mg tablet PO SCH (19:58)
[2024-08-19] VITALS (22 sets, daily range): BP systolic 117–167; BP diastolic 48–80; PULSE 65–115; RESP 16–20; TEMP 96.9–98.1; O2SAT 90–97
[2024-08-19 07:44] LABS: BASOPHILS % (AUTO) 0.1 % (0-1); EOSINOPHILS # (AUTO) 0.1 X10'3 (0-0.9); EOSINOPHILS % (AUTO) 1.2 % (0-6); HEMATOCRIT 24.8 % (42.0-52.0); HEMOGLOBIN 7.8 g/dl (14.0-17.9); LYMPHOCYTES # (AUTO) 0.4 X10'3 (1.1-4.8); LYMPHOCYTES % (AUTO) 3.6 % (21-51); MEAN CORPUSCULAR HEMOGLOBIN 32.7 PG (27.0-31.0); MEAN CORPUSCULAR HGB CONC 31.6 g/dL (33.0-36.5); MEAN CORPUSCULAR VOLUME 103.7 FL (78-98); MEAN PLATELET VOLUME 10.7 FL (7.4-10.4); MONOCYTES # (AUTO) 1.2 X10'3 (0-0.9); MONOCYTES % (AUTO) 10.1 % (2-12); NEUTROPHILS # (AUTO) 10.2 X10'3 (1.8-7.7); PLATELET COUNT 101 X10'3 (140-440); RED BLOOD COUNT 2.39 X10'6 (4.70-6.10); WHITE BLOOD COUNT 12.1 X10'3 (4.5-11.0)
[2024-08-19 08:17] LABS: ANION GAP 5 (8-16); BLOOD UREA NITROGEN 26 MG/DL (7-18); BUN/CREATININE RATIO 31.3 (10.0-20.0); CALCIUM 8.7 MG/DL (8.5-10.1); CHLORIDE 103 MMOL/L (99-107); CREATININE 0.83 MG/DL (0.60-1.10); GLUCOSE 116 MG/DL (70-104); SODIUM 139 MMOL/L (135-145); TOTAL CARBON DIOXIDE 31.4 MMOL/L (24-32); eCRCL 92 ML/MIN; eGFR > 90 ML/MIN
[2024-08-19] MEDS: furosemide 40mg/4ml inj IV SCH (09:00)
[2024-08-19] MEDS: furosemide 40mg/4ml inj IV ONE (10:15)
[2024-08-19 10:25] LABS: ACT @ 1.70 U 390 SEC (193-297); ACT @ 2.84 U 561 SEC (260-420); BASELINE ACT 171 SEC (101-148)
[2024-08-19] MEDS: amiodarone 150mg/dext, iso-os 100 ML IV ONE (12:31)
[2024-08-19] MEDS: amiodarone/D5 360MG/200ML BAG 200 ML IV SCH (12:32)
[2024-08-19] MEDS: potassium Cl 20 mEq SR tablet PO PRN (12:33)
[2024-08-19] MEDS: heparin, porcine 5000 units/ml vial SQ SCH (15:50)
[2024-08-19] MEDS: Melatonin 3mg tablet PO PRN (21:01)
[2024-08-20] VITALS (22 sets, daily range): BP systolic 116–161; BP diastolic 50–85; PULSE 47–109; RESP 12–24; TEMP 97–97.8; O2SAT 82–97
[2024-08-20 06:44] LABS: BASOPHILS % (AUTO) 0 % (0-1); EOSINOPHILS # (AUTO) 0.1 X10'3 (0-0.9); HEMATOCRIT 26.5 % (42.0-52.0); HEMOGLOBIN 8.2 g/dl (14.0-17.9); LYMPHOCYTES # (AUTO) 0.6 X10'3 (1.1-4.8); LYMPHOCYTES % (AUTO) 4.6 % (21-51); MEAN CORPUSCULAR HEMOGLOBIN 32.1 PG (27.0-31.0); MEAN CORPUSCULAR HGB CONC 30.9 g/dL (33.0-36.5); MEAN CORPUSCULAR VOLUME 103.9 FL (78-98); MEAN PLATELET VOLUME 10.6 FL (7.4-10.4); MONOCYTES # (AUTO) 1.9 X10'3 (0-0.9); MONOCYTES % (AUTO) 13.5 % (2-12); NEUTROPHILS # (AUTO) 11.4 X10'3 (1.8-7.7); NEUTROPHILS % (AUTO) 80.9 % (42-75); PLATELET COUNT 139 X10'3 (140-440); RED BLOOD COUNT 2.55 X10'6 (4.70-6.10); RED CELL DISTRIBUTION WIDTH 17.8 % (11.5-14.5)
[2024-08-20 06:53] LABS: ANION GAP 3 (8-16); BLOOD UREA NITROGEN 31 MG/DL (7-18); BUN/CREATININE RATIO 34.1 (10.0-20.0); CALCIUM 8.9 MG/DL (8.5-10.1); CHLORIDE 99 MMOL/L (99-107); CREATININE 0.91 MG/DL (0.60-1.10); GLUCOSE 116 MG/DL (70-104); POTASSIUM 4.9 MMOL/L (3.5-5.1); SODIUM 137 MMOL/L (135-145); TOTAL CARBON DIOXIDE 34.9 MMOL/L (24-32); eCRCL 84 ML/MIN; eGFR 83 ML/MIN
[2024-08-20 09:09] LABS: ANISOCYTOSIS 1+; LARGE PLATELETS FEW; PLATELET ESTIMATE DECREASED; POLYCHROMASIA FEW
[2024-08-21] VITALS (13 sets, daily range): BP systolic 106–152; BP diastolic 57–81; PULSE 78–93; RESP 17–29; TEMP 97.1–98.1; O2SAT 88–98
[2024-08-21 07:03] LABS: BASOPHILS % (AUTO) 0.3 % (0-1); EOSINOPHILS # (AUTO) 0.2 X10'3 (0-0.9); EOSINOPHILS % (AUTO) 1.6 % (0-6); LYMPHOCYTES # (AUTO) 0.6 X10'3 (1.1-4.8); LYMPHOCYTES % (AUTO) 4.6 % (21-51); MEAN CORPUSCULAR HEMOGLOBIN 32.6 PG (27.0-31.0); MEAN CORPUSCULAR HGB CONC 31.9 g/dL (33.0-36.5); MEAN CORPUSCULAR VOLUME 102.4 FL (78-98); MEAN PLATELET VOLUME 10.3 FL (7.4-10.4); MONOCYTES # (AUTO) 1.3 X10'3 (0-0.9); MONOCYTES % (AUTO) 10.1 % (2-12); NEUTROPHILS % (AUTO) 83.4 % (42-75); PLATELET COUNT 151 X10'3 (140-440); RED BLOOD COUNT 2.44 X10'6 (4.70-6.10); RED CELL DISTRIBUTION WIDTH 17.5 % (11.5-14.5); WHITE BLOOD COUNT 13.2 X10'3 (4.5-11.0)
[2024-08-21 07:30] LABS: ALBUMIN 2.9 G/DL (3.4-5.0); ANION GAP 2 (8-16); BLOOD UREA NITROGEN 37 MG/DL (7-18); BUN/CREATININE RATIO 35.9 (10.0-20.0); CALCIUM 8.7 MG/DL (8.5-10.1); CHLORIDE 100 MMOL/L (99-107); CREATININE 1.03 MG/DL (0.60-1.10); GLUCOSE 118 MG/DL (70-104); POTASSIUM 4.8 MMOL/L (3.5-5.1); SODIUM 139 MMOL/L (135-145); TOTAL CARBON DIOXIDE 37.2 MMOL/L (24-32); eCRCL 74 ML/MIN; eGFR 72 ML/MIN
[2024-08-21] MEDS ORDERED: AMI200T PO (08:25)
[2024-08-21] MEDS ORDERED: ASPI81TA53 PO (08:25)
[2024-08-21] MEDS ORDERED: HYDR-3972 PO (08:25)
[2024-08-21] MEDS ORDERED: ATOR10TA PO (08:25)
[2024-08-21] MEDS: amiodarone 200mg tablet PO SCH (08:48)
[2024-08-21] MEDS: metoprolol tartrate 25mg tablet PO SCH (22:07)
[2024-08-22] VITALS (9 sets, daily range): BP systolic 120–142; BP diastolic 44–85; PULSE 57–89; RESP 12–22; TEMP 97–98.4; O2SAT 91–99
[2024-08-22 07:54] LABS: ALBUMIN 2.9 G/DL (3.4-5.0); ANION GAP 1 (8-16); BLOOD UREA NITROGEN 35 MG/DL (7-18); CHLORIDE 101 MMOL/L (99-107); CREATININE 1.03 MG/DL (0.60-1.10); GLUCOSE 120 MG/DL (70-104); POTASSIUM 4.4 MMOL/L (3.5-5.1); SODIUM 141 MMOL/L (135-145); TOTAL CARBON DIOXIDE 38.6 MMOL/L (24-32); eCRCL 74 ML/MIN; eGFR 72 ML/MIN
[2024-08-22] MEDS ORDERED: FURO40TA4 PO (14:01)
[2024-08-23 02:00] VITALS: BP 140/56; PULSE 62; RESP 15; TEMP 98.2; O2SAT 94
[2024-08-23 06:41] LABS: ALBUMIN 3.1 G/DL (3.4-5.0); ANION GAP 3 (8-16); BLOOD UREA NITROGEN 39 MG/DL (7-18); BUN/CREATININE RATIO 40.2 (10.0-20.0); CALCIUM 9.1 MG/DL (8.5-10.1); CHLORIDE 100 MMOL/L (99-107); CREATININE 0.97 MG/DL (0.60-1.10); GLUCOSE 115 MG/DL (70-104); POTASSIUM 4.5 MMOL/L (3.5-5.1); SODIUM 140 MMOL/L (135-145); TOTAL CARBON DIOXIDE 37.2 MMOL/L (24-32); eCRCL 79 ML/MIN; eGFR 77 ML/MIN
[2024-08-23 07:29] VITALS: BP 131/47; PULSE 65; RESP 21; TEMP 97.2; O2SAT 92
[2024-08-23 08:00] VITALS: RESP 21; O2SAT 92
[2024-08-23 10:47] VITALS: BP 127/51; PULSE 64; RESP 17; TEMP 97.1; O2SAT 91
[2024-08-24] MEDS ORDERED: POTA-206 PO (10:13)
[2024-08-30] MEDS ORDERED: HYDR-3973 PO (15:50)
[2024-08-30] MEDS ORDERED: FURO-149 PO (15:50)
[2024-08-30] MEDS ORDERED: AMI200T PO (15:50)
[2024-08-30] MEDS ORDERED: ATOR10TA87 PO (15:50)
[2024-08-30] MEDS ORDERED: POTA-192 PO (15:50)
== END 2024-08-23 11:20 | disposition home or self-care (01) | DRG 216 ==
LOC: SSTAY O 11:27 → PCU 3S 15:15 → CICU 2S 08-15 10:33 → PCU 3S 08-18 16:58
PROVIDERS: ADMIT Student in an Organized Health Care Education/Training Program; ATTEND Student in an Organized Health Care Education/Training Program
PROC: 4A023N8 Measurement of Cardiac Sampling and Pressure, Bilateral, Percutaneous Approach (ICD-10-PCS; principal; 2024-08-12)
PROC: 5A0935A Assistance with Respiratory Ventilation, Less than 24 Consecutive Hours, High Flow/Velocity Cannula (ICD-10-PCS; 2024-08-14)
PROC: 5A09357 Assistance with Respiratory Ventilation, Less than 24 Consecutive Hours, Continuous Positive Airway Pressure (ICD-10-PCS; 2024-08-14)
PROC: B24BZZ4 Ultrasonography of Heart with Aorta, Transesophageal (ICD-10-PCS; 2024-08-15)
PROC: 02UG0JZ Supplement Mitral Valve with Synthetic Substitute, Open Approach (ICD-10-PCS; 2024-08-15)
PROC: 021109W Bypass Coronary Artery, Two Arteries from Aorta with Autologous Venous Tissue, Open Approach (ICD-10-PCS; 2024-08-15)
PROC: 06BQ4ZZ Excision of Left Saphenous Vein, Percutaneous Endoscopic Approach (ICD-10-PCS; 2024-08-15)
PROC: 06BP4ZZ Excision of Right Saphenous Vein, Percutaneous Endoscopic Approach (ICD-10-PCS; 2024-08-15)
PROC: 02BG0ZZ Excision of Mitral Valve, Open Approach (ICD-10-PCS; 2024-08-15)
PROC: 5A1221Z Performance of Cardiac Output, Continuous (ICD-10-PCS; 2024-08-15)
PROC: 02L70CK Occlusion of Left Atrial Appendage with Extraluminal Device, Open Approach (ICD-10-PCS; 2024-08-15)
PROC: 02HV33Z Insertion of Infusion Device into Superior Vena Cava, Percutaneous Approach (ICD-10-PCS; 2024-08-15)
PROC: 5A0935A Assistance with Respiratory Ventilation, Less than 24 Consecutive Hours, High Flow/Velocity Cannula (ICD-10-PCS; 2024-08-17)
PROC: 5A0935A Assistance with Respiratory Ventilation, Less than 24 Consecutive Hours, High Flow/Velocity Cannula (ICD-10-PCS; 2024-08-18)
DX: I25.10 Atherosclerotic heart disease of native coronary artery without angina pectoris (principal); I51.1 Rupture of chordae tendineae, not elsewhere classified; J96.20 Acute and chronic respiratory failure, unspecified whether with hypoxia or hypercapnia; D62 Acute posthemorrhagic anemia; Z68.42 Body mass index [BMI] 45.0-49.9, adult; I34.0 Nonrheumatic mitral (valve) insufficiency; E66.01 Morbid (severe) obesity due to excess calories; I10 Essential (primary) hypertension; E78.5 Hyperlipidemia, unspecified; I48.91 Unspecified atrial fibrillation; I27.20 Pulmonary hypertension, unspecified
CPT/HCPCS: 36415; 36430; 36600; 71045; 71046; 76376; 80048; 80053; 80061; 82330; 82435; 82565; 82800; 82803; 82947; 82948; 83036; 83735; 84100; 84132; 84295; 85008; 85014; 85018; 85025; 85027; 85347; 85384; 85610; 85730; 86885; 86900; 86901; 86920; 87081; 93005; 93312; 93325; 93460; 93880; 93970; 94002; 94003; 94060; 94660; 94668; 94760; 97116; 97161; 97530; 99152; A4615; A4618; A4620; A6213; A6222; A6258; A6402; A6449; A7000; A7048; A9900; C1751; C1894; G0378; J0171; J0282; J0330; J0690; J1250; J1644; J1815; J1885; J1940; J2003; J2150; J2250; J2260; J2270; J2371; J2704; J2720; J2919; J3010; J3370; J3372; J3475; J3480; J3490; J7030; J7040; J7050; J7120; P9035; P9045; P9047; Q0163; Q9967

== ENCOUNTER 2024-10-07 11:30 | Outpatient (CLI) | payer MEDICARE, OTHER ==
[~2024-10-07 11:30] MED LIST changes: +AMI200T PO; -AMLO5TAB16 PO; -APIX5TAB3 PO; +ATOR10TA87 PO; +FURO-149 PO; -FURO40TA4 PO; +HYDR-3973 PO; -LOSA100T58 PO; +POTA-192 PO; -vitamin c PO
--- NOTE | 2024-10-07 12:34 | RADIOLOGY REPORT ---
DI CHEST,TWO VIEWS CLINICAL HISTORY: CHF, EFFUSION COMPARISON: DI CHEST,TWO VIEWS on DOS: 08/13/24, DI CHEST,SINGLE VIEW on DOS: 09/03/24 TECHNIQUE: Single frontal view of the chest was obtained FINDINGS: Lines and Tubes: None Lungs: Bibasilar opacities. Pleura: Interval decrease in bilateral pleural effusions. No pneumothorax. Cardiomediastinal contours: Cardiomegaly. Bones: Median sternotomy. IMPRESSION: Cardiomegaly with bibasilar opacities. Interval decrease in bilateral pleural effusions.
== END 2024-10-07 23:59 | disposition home or self-care (01) ==
LOC: RAD 11:30
PROVIDERS: ATTEND Physician Assistant
DX: I51.7 Cardiomegaly (principal); J90 Pleural effusion, not elsewhere classified; I50.9 Heart failure, unspecified
CPT/HCPCS: 71046